=== PATIENT | female | born 1945 | race Caucasian/White ===

== ENCOUNTER 2018-02-11 10:51 | Outpatient (CLI) | payer MEDICARE | END 2018-02-11 10:52 | disposition home or self-care (01) | LOC: BICMAMMO 10:51 | PROVIDERS: ATTEND Family Medicine | DX: Z12.31 Encounter for screening mammogram for malignant neoplasm of breast (principal) | CPT/HCPCS: 77063; 77067 ==

== ENCOUNTER 2018-12-31 11:20 | Inpatient (IN) | payer MEDICARE ==
[2018-12-31 12:38] LABS: #Eosinphils 0.3 thou/uL (0.0-0.7); #Lymphocytes 3.2 thou/uL (1.20-3.40); #Monocytes 1.3 thou/uL (0.11-0.59); %Basophils 0.4 % (0.0-1.0); %Eosinophils 3.6 % (0.0-10.0); %Monocytes 14.4 % (0.0-10.0); %Neutrophils 45.6 % (42.0-75.0); Hemoglobin 12.8 g/dL (12.0-16.0); Mean Corpuscular HGB CONC 34.6 g/dL (32.0-36.0); Mean Corpuscular Hemoglobin 31.5 pg (27.0-31.0); Mean Corpuscular Volume 91.1 fL (78.0-98.0); Mean Platelet Volume 8.4 fL (7.4-10.4); Platelet Count 168 thou/uL (130-400); RBC Distribution Width 13.3 % (11.5-14.5); Red Blood Cell (RBC) Count 4.06 mill/uL (4.20-5.40); White Blood Cell (WBC) Count 8.8 thou/uL (4.8-10.8)
[2018-12-31 12:42] LABS: Bilirubin Negative (Negative); Blood, Urine Negative (Negative); Clarity Clear (Clear); Glucose, Urine (Dipstick) Normal (Negative); Leukocyte Negative Leu/uL (Negative); Nitrite Negative (Negative); Protein, Urine (Dipstick) Negative (Neg-Trace); Urobilinogen 3 mg/dL (Less than 2)
[2018-12-31 12:44] LABS: INR-International Normal Ratio 1.2; PTT 29.6 SEC (22.9-36.1); Prothrombin Time 15.1 SEC (12.0-14.7)
[2018-12-31] MEDS ORDERED: Ondansetron PF 4 MG/2 ML Vial ONE (13:02)
[2018-12-31 13:26] LABS: ALT (SGPT) 37 U/L (8-55); AST (SGOT) 58 U/L (5-34); Albumin 3.6 g/dL (3.4-4.8); Alkaline Phosphatase 151 U/L (40-110); Anion Gap 10 mmol/L (10-20); BUN (Urea Nitrogen) 15 mg/dL (9.8-20.1); Bilirubin, Total 0.9 mg/dL (0.2-1.2); Calc. Creatinine Clearance 0 mL/min (70-130); Calcium 8.3 mg/dL (7.8-10.44); Carbon Dioxide 23 mmol/L (23-31); Chloride 95 mmol/L (98-107); Estimated GFR-MDRD 69; Globulin 3.8 g/dL (2.4-3.5); Glucose 96 mg/dL (83-110); Potassium 4.3 mmol/L (3.5-5.1); Protein, Total 7.4 g/dL (6.0-8.3); Sodium 124 mmol/L (136-145)
[2018-12-31] MEDS ORDERED: Pantoprazole 40 MG VIAL ONE (13:33)
[2018-12-31] MEDS ORDERED: Acetaminophen 325 MG TAB PO PRN (14:46)
--- NOTE | 2018-12-31 15:20 | HP ---
CHIEF COMPLAINT: Hematemesis. HISTORY OF PRESENT ILLNESS: The patient is 73-year-old female with a past medical history of hypertension, who presents to the hospital with complaints of hematemesis x1 and melena. The patient states that she woke up this morning, felt kind of unwell, felt very nauseated. She went up to go to the bathroom, felt very nauseous and then she threw up about half a cup of bloody emesis. The patient's was at the bedside stated that it also had some clots in it. She denied any dizziness or lightheadedness. However, she did not feel well. Then, she started having some abdominal cramping. At this time, she went to the bathroom and had some really, really dark tarry stools. The patient states that she does take ibuprofen, but very occasionally, not on a regular basis. She states that she had an endoscopy about 2 or 3 years ago and was told that she has a tear and at that time, there was no intervention. However, she was advised that the situation like this arises to come into the hospital. However, this was a very long time ago. The patient is currently on nadolol for this reason. PAST MEDICAL HISTORY: She has history of hypertension. PAST SURGICAL HISTORY: She has had a and she had a uterus that was ruptured, which was removed. MEDICATIONS: She is on; 1. Amlodipine 10 mg daily. 2. Nadolol 20 mg daily. 3. Prilosec 20 mg as needed. 4. Cranberry. 5. Multivitamin. ALLERGIES: SHE IS ALLERGIC TO SULFA. HER THROAT SWELLS UP. REVIEW OF SYSTEMS: All negative except for the ones mentioned above in the HPI. FAMILY HISTORY: History of heart disease and strokes in mother and father. SOCIAL HISTORY: The patient smokes a pack every 2 to 3 days. She does consume about 12 cans of alcohol in a week and does not drink any hot liquor. PHYSICAL EXAMINATION: VITAL SIGNS: As of the following; temperature of 98.2, respiratory rate 20, pulse 63, blood pressure 140/87, and oxygen saturation 100% on room air. GENERAL: She is awake, alert, and oriented x3. Does not appear in any distress. HEENT: Normocephalic, atraumatic. Pupils are equal and reactive to light. NECK: No lymphadenopathy noted. CARDIOVASCULAR: S1 and S2 present. No murmurs, rubs, or gallops. LUNGS: Clear to auscultation. No rhonchi or wheezes noted. ABDOMEN: Soft. Bowel sounds are present x2. She does have pain upon palpation to epigastric and her right upper quadrant. EXTREMITIES: Mild 1+ edema. NEUROVASCULAR: No focal deficits noted. SKIN: No cuts, lesions, or bruises noted. LABORATORY RESULTS: WBCs of 8.8, hemoglobin of 12.8, hematocrit of 37.0, and platelets of 168. Chemistry; sodium of 124, potassium of 4.3, BUN of 15, and creatinine 0.81. Her AST is 58, ALT is 37. Her urine was normal. ASSESSMENT AND PLAN: The patient is a very pleasant 73-year-old female, who presents to the hospital with complaints of hematemesis. 1. Hematemesis. This could be possibly from either some peptic ulcer disease versus esophageal tear versus varices. However, we will get a CT of abdomen and pelvis and keep her n.p.o. with just sips of water. I will check her H and H every 6 hours. She has had only one episode at home and she has had no episodes here. Also, I will start her on some gentle normal saline. Hold her blood pressure medications and as I mentioned, get GI on board and I will also put her on a PPI. 2. Hyponatremia. I will check a serum osmolality, urine osmolality, and urine sodium. This could be secondary to syndrome of inappropriate antidiuretic hormone secretion from stressful situation versus mild dehydration. However, I will await till results of the lab tests come back. 3. History of hypertension. I will hold off her amlodipine, however, may consider starting her on nadolol. 4. Deep venous thrombosis prophylaxis. I will not put her on any Lovenox given her fact that she is having hematemesis and melena. Job ID: [id number]
--- NOTE | 2018-12-31 15:33 | CT ---
CT Abdomen Pelvis WO Con History: Abdominal pain Comparison: Abdomen MRI 2012. Findings: Lung bases are clear. No pericardial effusion. Severe cirrhosis. Evaluation for liver mass as well as the solid organs is limited without intravenous contrast. There is no nephroureterolithiasis or hydroureteronephrosis. Small volume free fluid in the pelvis which does contain some dystrophic calcifications in the depend ent pelvis. There is circumferential wall thickening of the ascending colon likely congestive in nature. The appe ndix is felt to be visualized and is normal. Mild enlargement of the portal vein. Mild edema around the portal confluence. Mild retroperitoneal venous congestive changes. Circumferential disc osteophyte complexes lower lumbar spine causing neural foraminal and spinal karoline l narrowing. Impression: 1. No nephroureterolithiasis or hydroureteronephrosis. No secondary evidence of a recently passed sto ne. 2. Severe hepatic cirrhosis with congestive changes of the ascending colon and retroperitoneal venous system from chronic portal hypertension. 3. MRI with and without contrast liver protocol is recommended to evaluate for underlying hepatic mas s given lack of cross-sectional imaging since October 2012. 4. Small volume ascites in the pelvic cul-de-sac.
[2018-12-31 15:43] LABS: Hemoglobin 12.6 g/dL (12.0-16.0)
[2018-12-31 17:13] VITALS: BMI 28.9
[2018-12-31] MEDS: Sodium Chloride 0.9% 1,000 ML IV SCH (17:51)
[2018-12-31 18:18] LABS: Anion Gap 12 mmol/L (10-20); BUN (Urea Nitrogen) 13 mg/dL (9.8-20.1); Calc. Creatinine Clearance 75 mL/min (70-130); Calcium 8.4 mg/dL (7.8-10.44); Carbon Dioxide 21 mmol/L (23-31); Chloride 106 mmol/L (98-107); Estimated GFR-MDRD 77; Glucose 92 mg/dL (83-110); Potassium 4.3 mmol/L (3.5-5.1); Sodium 135 mmol/L (136-145)
[2018-12-31 21:05] LABS: Hemoglobin 12.6 g/dL (12.0-16.0)
[2019-01-01] MEDS: Pantoprazole 80 MG in Sodium Chloride 0.9% 100 ML IVP SCH ×2 (01:04→10:37)
[2019-01-01] MEDS: Zolpidem Tartrate 5 MG TAB PO PRN ×2 (02:19→22:07)
[2019-01-01 03:25] LABS: #Basophils 0.1 thou/uL (0.0-0.2); #Eosinphils 0.3 thou/uL (0.0-0.7); #Lymphocytes 3.1 thou/uL (1.20-3.40); #Monocytes 1.2 thou/uL (0.11-0.59); #Neutrophils 3.9 thou/uL (1.40-6.50); %Basophils 0.7 % (0.0-1.0); %Eosinophils 3.4 % (0.0-10.0); %Lymphocytes 36.6 % (21.0-51.0); %Monocytes 13.6 % (0.0-10.0); %Neutrophils 45.7 % (42.0-75.0); Hemoglobin 11.9 g/dL (12.0-16.0); Mean Corpuscular HGB CONC 33.6 g/dL (32.0-36.0); Mean Corpuscular Hemoglobin 31.2 pg (27.0-31.0); Mean Corpuscular Volume 92.6 fL (78.0-98.0); Mean Platelet Volume 8.5 fL (7.4-10.4); Platelet Count 150 thou/uL (130-400); RBC Distribution Width 13.6 % (11.5-14.5); White Blood Cell (WBC) Count 8.6 thou/uL (4.8-10.8)
[2019-01-01 03:46] LABS: Anion Gap 10 mmol/L (10-20); BUN (Urea Nitrogen) 13 mg/dL (9.8-20.1); Calc. Creatinine Clearance 69 mL/min (70-130); Calcium 8.1 mg/dL (7.8-10.44); Carbon Dioxide 23 mmol/L (23-31); Chloride 107 mmol/L (98-107); Estimated GFR-MDRD 69; Glucose 89 mg/dL (83-110); Potassium 3.8 mmol/L (3.5-5.1); Sodium 136 mmol/L (136-145)
[2019-01-01 08:39] LABS: Hemoglobin 12.7 g/dL (12.0-16.0)
[2019-01-01] MEDS: Nadolol 40 MG TAB PO SCH ×2 (08:54→09:20)
--- NOTE | 2019-01-01 09:33 | CON ---
DATE OF CONSULTATION: 01/01/2019 REASON FOR CONSULTATION: Hematemesis. HISTORY OF PRESENT ILLNESS: Yvrose Mcdonough is a 73-year-old woman, previously seen by my GI colleague, Dr. Mayo. In 2012, she underwent EGD and colonoscopy. The colonoscopy was normal showing only internal hemorrhoids, but the EGD demonstrated grade 2 esophageal varices and antral ulcer, antral gastritis, and portal hypertensive gastropathy. At that point, the patient was started on Nexium and nadolol. She was diagnosed with hepatitis C, genotype 4, and was found to have cirrhotic liver configuration on imaging. She is continued on nadolol since that time, but has not followed up with Dr. Mayo at all. She continues to smoke. She also continues to drink alcohol, at least 12 alcoholic beverages per week, probably more. She has not had any symptoms of ascites or jaundice or any GI bleeding over the past 6 years since last seeing Dr. Mayo. She has no chronic gastrointestinal symptoms. Yesterday morning, she had sudden emesis and this was a moderate amount of what appeared to be chen blood. This was a single event. Later yesterday, she had a melenic-appearing stool. This has not recurred. She has had no bowel movements. No nausea. No abdominal pain or further vomiting. This morning, she has remained hemodynamically stable. BUN is only 13. Hemoglobin on admission was 12.8 and this is stable at 11.[address] imaging without contrast demonstrates cirrhotic liver configuration with evidence of portal hypertension, small amount of free fluid in the pelvis. The patient relates that she will take IV ibuprofen perhaps twice per week for aches and pains. She takes Prilosec on an as-needed basis for heartburn and she has continued her nadolol. She has never been treated for hepatitis C. PAST MEDICAL HISTORY: Hypertension, , hysterectomy, cirrhosis diagnosed in 2012, hepatitis C genotype 4, colonoscopy in 2012 normal, EGD in 2013 showing grade 2 esophageal varices and antral ulcer. ALLERGIES: SULFA. MEDICATIONS: Outpatient medications: 1. Ibuprofen p.r.n. 2. Prilosec 20 mg p.r.n. 3. Nadolol 20 mg daily. 4. Amlodipine. 5. Cranberry. 6. Multivitamin. Inpatient medications: 1. Nadolol. 2. Protonix drip. 3. Zolpidem. FAMILY HISTORY: Noncontributory. SOCIAL HISTORY: The patient continues to smoke. She continues to drink alcohol at least 12 alcoholic beverages per day, probably more. PHYSICAL EXAMINATION: VITAL SIGNS: Temperature 98.7, pulse 62, blood pressure 168/69, oxygen saturation 92% on room air. GENERAL: A 73-year-old woman, lying in bed comfortably, in no distress. SKIN: No jaundice. No rashes were palpable. EYES: No scleral icterus. Extraocular eye movements intact. ENT: Mucous membranes moist. No oral lesions. LYMPH: No submandibular or supraclavicular lymphadenopathy. THYROID: Nontender to palpation. HEART: Regular rate and rhythm. LUNGS: Clear to auscultation bilaterally. ABDOMEN: Bowel sounds present. Nondistended, soft, nontender to palpation throughout. EXTREMITIES: No peripheral edema. VESSELS: Radial pulses 2+ bilaterally. NEURO: Cranial nerves II through XII intact bilaterally. No focal deficits. LABORATORY STUDIES: Hemoglobin 11.9, WBC 8.6, and platelets 150. INR 1.2, BUN 13, creatinine 0.81, sodium 136, potassium 3.8, total bilirubin 0.9, alkaline phosphatase 151, AST 58, ALT 37, and albumin 3.6. Urinalysis negative. IMAGING STUDIES: CT of the abdomen and pelvis without contrast demonstrates cirrhotic liver configuration with evidence of portal hypertension. Small amount of free fluid in the pelvis. ASSESSMENT AND PLAN: 1. Upper gastrointestinal bleed, appears to have resolved clinically. 2. Cirrhosis, with failure to follow up over the past several years. 3. History of esophageal varices, on nadolol. 4. History of peptic ulcer disease, taking ibuprofen p.r.n. The patient at presentation does not really seem consistent with acute variceal bleed, obviously this needs to be ruled out. She is on Protonix drip at this time. She has continued her nadolol since 2013. We will perform diagnostic upper endoscopy today. Further recommendations following endoscopy. 5. Hepatitis C, genotype 4. She is treatment naive. She should follow up with Dr. Mayo on an outpatient basis to consider one of the new oral therapy regimens. Job ID: [id number]
--- NOTE | 2019-01-01 10:55 | PDOC.HOSPP ---
- Subjective Encounter Date: 01/01/19 Encounter Time: 08:45 Subjective: Patient seen and examined. No new complaints. No overnight events - Objective Vital Signs & Weight: Vital Signs (12 hours) Temp Pulse Resp BP Pulse Ox 01/01/19 08:00 98.4 F 65 16 126/65 94 L 01/01/19 04:00 98.3 F 59 L 16 120/68 93 L 01/01/19 00:00 98.2 F 61 15 134/64 93 L Weight Weight 158 lb I&O: 12/31/18 01/01/19 01/02/19 06:59 06:59 06:59 Intake Total 1900 Balance 1900 Result Diagrams: 01/01/19 08:22 01/01/19 03:17 Radiology Reviewed by me: Yes Hospitalist ROS - Review of Systems Constitutional: denies: fever, chills, sweats, weakness, malaise, other Eyes: denies: pain, vision change, conjunctivae inflammation, eyelid inflammation, redness, other ENT: denies: ear pain, ear discharge, nose pain, nose discharge, nose congestion , mouth pain, mouth swelling, throat pain, throat swelling, other Respiratory: denies: cough, dry, shortness of breath, hemoptysis, SOB with excertion, pleuritic pain, sputum, wheezing, other Cardiovascular: denies: chest pain, palpitations, orthopnea, paroxysmal noc. dyspnea, edema, light headedness, other Gastrointestinal: denies: nausea, vomiting, abdominal pain, diarrhea, constipation, melena, hematochezia, other Genitourinary: denies: dysuria, frequency, incontinence, hematuria, retention, other Musculoskeletal: denies: neck pain, shoulder pain, arm pain, back pain, hand pain, leg pain, foot pain, other Skin: denies: rash, lesions, rita, bruising, other - Medication Medications: Active Medications Generic Name Dose Route Start Last Admin Trade Name Freq PRN Reason Stop Dose Admin Pantoprazole Sodium 80 mg/ 100 mls @ 10 mls/hr 12/31/18 13:15 01/01/19 10:37 Sodium Chloride IVP 100 mls INF WHIT Administration Sodium Chloride 1,000 mls @ 50 mls/hr 12/31/18 15:00 12/31/18 17:51 Normal Saline 0.9% IV 1,000 mls .Q20H WHIT Administration Nadolol 20 mg 01/01/19 09:00 01/01/19 09:20 Corgard PO 20 mg DAILY WHIT Administration Zolpidem Tartrate 10 mg 01/01/19 02:02 01/01/19 02:19 Ambien PO 10 mg HS PRN Administration Insomnia - Exam General Appearance: NAD, awake alert Eye: PERRL, anicteric sclera ENT: normocephalic atraumatic, no oropharyngeal lesions Neck: supple, symmetric, no JVD, no thyromegaly Heart: RRR, no murmur, no gallops, no rubs, normal peripheral pulses Respiratory: CTAB, no wheezes, no rales, no ronchi, normal chest expansion Gastrointestinal: soft, non-tender, non-distended, normal bowel sounds, no palpable masses Extremities: no cyanosis, no clubbing, no edema Skin: normal turgor, no lesions, no rashes Neurological: cranial nerve grossly intact, no focal deficits Musculoskeletal: normal tone, normal strength Psychiatric: normal affect, normal behavior, A&O x 3 Hosp A/P (1) Upper GI bleed Code(s): K92.2 - GASTROINTESTINAL HEMORRHAGE, UNSPECIFIED Status: Acute (2) Cirrhosis of liver Code(s): K74.60 - UNSPECIFIED CIRRHOSIS OF LIVER Status: Chronic Qualifiers: Hepatic cirrhosis type: other cirrhosis Qualified Code(s): K74.69 - Other cirrhosis of liver (3) H/O esophageal varices Code(s): Z87.19 - PERSONAL HISTORY OF OTHER DISEASES OF THE DIGESTIVE SYSTEM Status: Chronic (4) Chronic hepatitis C Code(s): B18.2 - CHRONIC VIRAL HEPATITIS C Status: Chronic Qualifiers: Hepatic coma status: without hepatic coma Qualified Code(s): B18.2 - Chronic viral hepatitis C (5) Hypertension Code(s): I10 - ESSENTIAL (PRIMARY) HYPERTENSION Status: Acute Qualifiers: Hypertension type: essential hypertension Qualified Code(s): I10 - Essential (primary) hypertension (6) PUD (peptic ulcer disease) Code(s): K27.9 - PEPTIC ULC, SITE UNSP, UNSP AC OR CHR, W/O HEMOR OR PERF Status: Chronic - Plan old records reviewed/req, plan discussed w/ family 01/01/19, today EGD, repeat labs tomorrow, check AFP tomorrow, home medication reviewed and symptomatic treatment, will consider discharge tomorrow if stable
[2019-01-01] MEDS ORDERED: PROPOFOL 200 MG/20 ML VIAL ONE (12:29)
[2019-01-01] MEDS: Sodium Chloride 0.9% 1,000 ML IV SCH (12:32)
--- NOTE | 2019-01-01 13:23 | OP ---
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 PROCEDURES PERFORMED: Esophagogastroduodenoscopy with variceal band ligation. INDICATION: A 73-year-old woman with a history of known cirrhosis and portal hypertension, presenting after a single episode of hematemesis and melena yesterday. MEDICATIONS: See Anesthesia record. FINDINGS: After discussion of the risks, benefits, and alternatives of the procedure, informed consent was obtained and witnessed. Pre-endoscopic cardiopulmonary examination was satisfactory. Time-out was performed before sedation was achieved. Sedation was achieved with Anesthesia assistance in the endoscopy unit. A Pentax adult upper endoscope was placed into the oropharynx and passed through the cricopharyngeus under direct visualization. The proximal esophageal mucosa appeared normal. In the mid and distal esophagus, there were three trunks of very large grade 3 esophageal varices. I did not see any punctate red spots or nipple signs or any other stigmata of recent hemorrhage. The endoscope was advanced beyond the GE junction, which was located at 39 cm from the incisors, and into the stomach. Forward and retroflexed views of the entire gastric mucosa were obtained. There was just some mild gastropathy in the gastric body. No erosions, no ulcerations, no bleeding lesions. The endoscope was advanced through the pylorus and into the first and second portions of the duodenum, which appeared normal. Even though, there were no stigmata of recent hemorrhage on the esophageal varices, given that no other recent bleeding source was found, I did decide to proceed with banding of the varices. Three bands were placed to large varices in the distal esophagus, without complication. Following this, the varices had really good decompression proximally. The upper endoscope was completely withdrawn and the patient allowed to recover. The patient tolerated the procedure well. There were no immediate postprocedure complications. IMPRESSION: 1. Three trunks of grade 3 distal esophageal varices, now status post variceal band ligation x3. 2. Mild portal hypertensive gastropathy in the gastric body, with no evidence of bleeding. 3. Otherwise, normal esophagogastroduodenoscopy. No evidence of gastric varices. RECOMMENDATION: 1. Full liquid diet today. 2. I am going to start octreotide 50 mcg/hour IV. This should be continued for 48 hours. If the patient is doing well tomorrow, can advance diet as tolerated. 3. The patient is going to need close followup with Dr. Mayo in the GI[facility], for repeat EGD with banding in the next 1 to 2 months. 4. Continue with nadolol. Job ID: [id number]
[2019-01-01] MEDS: Octreotide Acetate 1,250 MCG in Sodium Chloride 0.9% 250 ML 250 ML IVPB SCH (13:43)
[2019-01-01 14:16] LABS: Hemoglobin 12.6 g/dL (12.0-16.0)
[2019-01-01 21:10] LABS: Hemoglobin 12.6 g/dL (12.0-16.0)
[2019-01-02 06:43] LABS: #Basophils 0.1 thou/uL (0.0-0.2); #Eosinphils 0.4 thou/uL (0.0-0.7); #Lymphocytes 2.8 thou/uL (1.20-3.40); #Monocytes 1.2 thou/uL (0.11-0.59); #Neutrophils 4.7 thou/uL (1.40-6.50); %Basophils 0.6 % (0.0-1.0); %Eosinophils 4.5 % (0.0-10.0); %Lymphocytes 31.1 % (21.0-51.0); %Monocytes 12.5 % (0.0-10.0); %Neutrophils 51.3 % (42.0-75.0); Mean Corpuscular HGB CONC 32.8 g/dL (32.0-36.0); Mean Corpuscular Hemoglobin 30.8 pg (27.0-31.0); Mean Corpuscular Volume 93.8 fL (78.0-98.0); Platelet Count 157 thou/uL (130-400); RBC Distribution Width 13.8 % (11.5-14.5); Red Blood Cell (RBC) Count 4.23 mill/uL (4.20-5.40); White Blood Cell (WBC) Count 9.1 thou/uL (4.8-10.8)
[2019-01-02 07:07] LABS: ALT (SGPT) 33 U/L (8-55); AST (SGOT) 53 U/L (5-34); Albumin 3.7 g/dL (3.4-4.8); Alkaline Phosphatase 107 U/L (40-110); Anion Gap 13 mmol/L (10-20); BUN (Urea Nitrogen) 8 mg/dL (9.8-20.1); Calc. Creatinine Clearance 65 mL/min (70-130); Calcium 8.4 mg/dL (7.8-10.44); Carbon Dioxide 22 mmol/L (23-31); Chloride 102 mmol/L (98-107); Estimated GFR-MDRD 65; Globulin 3.8 g/dL (2.4-3.5); Glucose 107 mg/dL (83-110); Potassium 3.9 mmol/L (3.5-5.1); Protein, Total 7.5 g/dL (6.0-8.3); Sodium 133 mmol/L (136-145)
[2019-01-02] MEDS: Nadolol 40 MG TAB PO SCH (09:02)
[2019-01-02] MEDS: Sodium Chloride 0.9% 1,000 ML IV SCH (09:06)
--- NOTE | 2019-01-02 10:15 | PDOC.HOSPP ---
- Subjective Encounter Date: 01/02/19 Encounter Time: 08:00 Subjective: Patient seen and examined. No new complaints. No overnight events - Objective Vital Signs & Weight: Vital Signs (12 hours) Temp Pulse Resp BP Pulse Ox 01/02/19 07:32 98.4 F 61 18 159/71 H 93 L 01/02/19 04:07 98.3 F 64 18 135/71 95 01/02/19 00:00 97.9 F 60 16 136/74 91 L Weight Weight 158 lb I&O: 01/01/19 01/02/19 01/03/19 06:59 06:59 06:59 Intake Total 1900 Balance 1900 Result Diagrams: 01/02/19 06:09 01/02/19 06:09 Hospitalist ROS - Review of Systems Constitutional: denies: fever, chills, sweats, weakness, malaise, other Eyes: denies: pain, vision change, conjunctivae inflammation, eyelid inflammation, redness, other ENT: denies: ear pain, ear discharge, nose pain, nose discharge, nose congestion , mouth pain, mouth swelling, throat pain, throat swelling, other Respiratory: denies: cough, dry, shortness of breath, hemoptysis, SOB with excertion, pleuritic pain, sputum, wheezing, other Cardiovascular: denies: chest pain, palpitations, orthopnea, paroxysmal noc. dyspnea, edema, light headedness, other Gastrointestinal: denies: nausea, vomiting, abdominal pain, diarrhea, constipation, melena, hematochezia, other Genitourinary: denies: dysuria, frequency, incontinence, hematuria, retention, other Musculoskeletal: denies: neck pain, shoulder pain, arm pain, back pain, hand pain, leg pain, foot pain, other Skin: denies: rash, lesions, rita, bruising, other - Medication Medications: Active Medications Generic Name Dose Route Start Last Admin Trade Name Freq PRN Reason Stop Dose Admin Pantoprazole Sodium 80 mg/ 100 mls @ 10 mls/hr 12/31/18 13:15 01/01/19 10:37 Sodium Chloride IVP 100 mls INF WHIT Administration Sodium Chloride 1,000 mls @ 50 mls/hr 12/31/18 15:00 01/02/19 09:06 Normal Saline 0.9% IV Not Given .Q20H WHIT Octreotide Acetate 1,250 mcg/ 251.25 mls @ 10.05 mls/hr 01/01/19 12:59 13:43 Sodium Chloride IVPB 251.25 mls INF WHIT Administration 50 MCG/HR Nadolol 20 mg 01/01/19 09:00 01/02/19 09:02 Corgard PO 20 mg DAILY WHIT Administration Zolpidem Tartrate 10 mg 01/01/19 02:02 01/01/19 22:07 Ambien PO 10 mg HS PRN Administration Insomnia - Exam General Appearance: NAD, awake alert Eye: PERRL, anicteric sclera ENT: normocephalic atraumatic, no oropharyngeal lesions Neck: supple, symmetric, no JVD, no thyromegaly, no lymphadenopathy Heart: RRR, no murmur, no gallops, no rubs, normal peripheral pulses Respiratory: CTAB, no wheezes, no rales, no ronchi, normal chest expansion Gastrointestinal: soft, non-tender, non-distended, normal bowel sounds, no palpable masses Extremities: no cyanosis, no clubbing, no edema Skin: normal turgor, no lesions, no rashes Neurological: cranial nerve grossly intact, normal sensation to touch, no weakness Musculoskeletal: normal tone, normal strength Psychiatric: normal affect, normal behavior, A&O x 3 Hosp A/P (1) Upper GI bleed Code(s): K92.2 - GASTROINTESTINAL HEMORRHAGE, UNSPECIFIED Status: Acute (2) Cirrhosis of liver Code(s): K74.60 - UNSPECIFIED CIRRHOSIS OF LIVER Status: Chronic Qualifiers: Hepatic cirrhosis type: other cirrhosis Qualified Code(s): K74.69 - Other cirrhosis of liver (3) H/O esophageal varices Code(s): Z87.19 - PERSONAL HISTORY OF OTHER DISEASES OF THE DIGESTIVE SYSTEM Status: Chronic (4) Chronic hepatitis C Code(s): B18.2 - CHRONIC VIRAL HEPATITIS C Status: Chronic Qualifiers: Hepatic coma status: without hepatic coma Qualified Code(s): B18.2 - Chronic viral hepatitis C (5) Hypertension Code(s): I10 - ESSENTIAL (PRIMARY) HYPERTENSION Status: Acute Qualifiers: Hypertension type: essential hypertension Qualified Code(s): I10 - Essential (primary) hypertension (6) PUD (peptic ulcer disease) Code(s): K27.9 - PEPTIC ULC, SITE UNSP, UNSP AC OR CHR, W/O HEMOR OR PERF Status: Chronic (7) Portal hypertension with esophageal varices Code(s): K76.6 - PORTAL HYPERTENSION; I85.00 - ESOPHAGEAL VARICES WITHOUT BLEEDING Status: Chronic - Plan old records reviewed/req, plan discussed w/ family 01/01/19, today EGD, repeat labs tomorrow, check AFP tomorrow, home medication reviewed and symptomatic treatment, will consider discharge tomorrow if stable 01/02/19- GI recommendation appreciated, advance today, continue Octreotide drip today, H & H stable, will consider discharge tomorrow, DC IVF
--- NOTE | 2019-01-02 12:29 | PRG ---
DATE OF SERVICE: 01/02/2019 SUBJECTIVE: Ms. Mcdonough is doing just fine. She has a little bit of mild chest soreness. She has been tolerating her liquid diet just fine. She has remained hemodynamically stable. No nausea or vomiting. Hemoglobin has remained stable. OBJECTIVE: VITAL SIGNS: Temperature 98.4, pulse 61, blood pressure 159/71, and 93% oxygen saturation on room air. GENERAL: No acute distress. HEART: Regular rate and rhythm. LUNGS: Clear to auscultation bilaterally. ABDOMEN: Soft and nontender to palpation throughout. EXTREMITIES: No peripheral edema. LABORATORY STUDIES: Sodium 133, potassium 3.9, BUN 8, creatinine 0.86, total bilirubin 1.0, alkaline phosphatase 107, AST 53, ALT 33, albumin 3.7. INR 1.2. WBC 9.1, hemoglobin up to 13.0, and platelets 157. ASSESSMENT AND PLAN: 1. Esophageal varices, status post endoscopic variceal band ligation performed yesterday x3. The patient needs to continue on octreotide for another 24 hours. At that point, if there is no further evidence of rebleeding, she could potentially be discharged home, to continue her nadolol. She will need to follow up with Dr. Mayo in the GI Clinic within the next few weeks on an outpatient basis. She will need repeat EGD on an outpatient basis in the next 1 to 2 months for rebanding of varices. 2. Upper gastrointestinal bleed, has resolved clinically. 3. Cirrhosis, secondary to alcohol and hepatitis C. 4. Hepatitis C, genotype 4. The patient will need to follow up with Dr. Mayo on an outpatient basis. I emphasized with her the supreme importance of stopping all alcohol use from this point forward. She will probably be a good candidate for one of the newer all oral hepatitis C therapy regimens within the coming months. 5. Advance diet today. Discharge tomorrow if doing well. Job ID: [id number]
[2019-01-02] MEDS: Octreotide Acetate 1,250 MCG in Sodium Chloride 0.9% 250 ML 250 ML IVPB SCH (15:38)
--- NOTE | 2019-01-02 17:48 | PQF ---
ISAAC FUENTES, VICK MENDEZ MD [id number] CLINICAL DOCUMENTATION IMPROVEMENT CLARIFICATION FORM: ICD-10 Updated PLEASE DO AN ADDENDUM TO THE PROGRESS NOTE WITH ANY DOCUMENTATION UPDATES OR ADDITIONS AND CARRY THROUGH TO DC SUMMARY. THANK YOU. DATE: 01/02/19 ATTN: Dr. Yoo Please exercise your independent, professional judgment in responding to the clarification form. Clinical indicators are provided on the bottom of this form for your review Please check appropriate box(s): [ x ] Upper Gastrointestinal Bleed due to Esophageal varices with hemorrhage [ ] Upper Gastrointestinal Bleed due to Esophageal varices without hemorrhage [ ] Upper gastrointestinal bleed due to Acuity:[ ] Acute [ ] Chronic [ ] Other diagnosis [ ] Unable to determine In addition, please specify: Present on Admission (POA): [x ] Yes [ ] No [ ] Unable to determine For continuity of documentation, please document condition throughout progress notes and discharge summary. Thank You. CLINICAL INDICATORS - SIGNS / SYMPTOMS / LABS / RESULTS AND LOCATION IN EMR H&P(Margret): "Hematemesis x1 and melena" 01/02 (Fredo): "Upper GI bleed" RISK FACTORS / RESULTS AND LOCATION IN EMR 01/02 Dr. 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 Hook TREATMENTS / RESULTS AND LOCATION IN EMR Octreotide drip 12/31 per orders Protonix drip 12/31 per orders NS at 50 12/31 to 01/02 per orders EGD with banding x3 01/01 per OP note GI consult 12/31 orders Serial Hgb/Hcts Q6h 12/31 per orders (This form is maintained as a part of the permanent medical record) 2014 [employer]. All Rights Reserved Serenity Restrepo RN, BSN, CCDS [email or web address] FIOR
[2019-01-02] MEDS: Zolpidem Tartrate 5 MG TAB PO PRN (22:07)
[2019-01-03] MEDS: Nadolol 40 MG TAB PO SCH (08:40)
--- NOTE | 2019-01-03 09:12 | PRG ---
DATE OF SERVICE: 01/03/2019 SUBJECTIVE: Ms. Mcdonough is doing well. She has no further chest discomfort. No abdominal pain, nausea, or vomiting. She is tolerating her diet. She has remained hemodynamically stable. OBJECTIVE: VITAL SIGNS: Temperature 98.7, pulse 76, blood pressure 149/73, and 92% oxygen saturation on room air. GENERAL: No acute distress. HEART: Regular rate and rhythm. LUNGS: Clear to auscultation bilaterally. ABDOMEN: Mild distention, soft, and nontender to palpation throughout. EXTREMITIES: No peripheral edema. LABORATORY STUDIES: AFP only 4.8. ASSESSMENT AND PLAN: 1. Esophageal varices, status post endoscopic variceal band ligation performed two days ago x3. The patient can finish up her octreotide drip today, and from my standpoint, with no further evidence of rebleeding, she could be discharged home. She needs to continue with her nadolol. She will need to follow up with Dr. Mayo in the GI Clinic in the next couple of weeks on an outpatient basis. She will need repeat esophagogastroduodenoscopy in the next 1 to 2 months for repeat banding of varices. 2. Upper gastrointestinal bleed, clinically resolved. 3. Cirrhosis, secondary to alcohol and hepatitis C. 4. Hepatitis C, genotype 4. I again emphasized the importance of stopping all alcohol use from this point forward, the patient is confident she will be able to do this. She will probably be a good candidate for hepatitis C therapy within the coming months as well. Gastroenterology will sign off, but please call back anytime with questions or concerns. Job ID: [id number]
--- NOTE | 2019-01-03 12:06 | PDOC.HOSPP ---
- Subjective Encounter Date: 01/03/19 Encounter Time: 11:00 Subjective: Expresses no complaint. - Objective Vital Signs & Weight: Vital Signs (12 hours) Temp Pulse Resp BP Pulse Ox 01/03/19 08:40 92 L 01/03/19 07:38 98.7 F 76 18 149/73 H 92 L Weight Weight 158 lb I&O: 01/02/19 01/03/19 01/04/19 06:59 06:59 06:59 Intake Total 720 Balance 720 Result Diagrams: 01/02/19 06:09 01/02/19 06:09 Hospitalist ROS - Medication Medications: Active Medications Generic Name Dose Route Start Last Admin Trade Name Freq PRN Reason Stop Dose Admin Acetaminophen 650 mg 12/31/18 14:46 01/02/19 22:09 Tylenol PO 650 mg Q4H PRN Administration Headache/Fever/Mild Pain (1-3) Octreotide Acetate 1,250 mcg/ 251.25 mls @ 10.05 mls/hr 01/01/19 12:59 15:38 Sodium Chloride IVPB 251.25 mls INF WHIT Administration 50 MCG/HR Nadolol 20 mg 01/01/19 09:00 01/03/19 08:40 Corgard PO 20 mg DAILY WHIT Administration Zolpidem Tartrate 10 mg 01/01/19 02:02 01/02/19 22:07 Ambien PO 10 mg HS PRN Administration Insomnia - Exam Neck: no JVD Heart: RRR Respiratory: CTAB Gastrointestinal: soft Extremities: no edema Neurological: no focal deficits Psychiatric: normal affect Hosp A/P (1) Hypertension Code(s): I10 - ESSENTIAL (PRIMARY) HYPERTENSION Status: Acute Qualifiers: Hypertension type: essential hypertension Qualified Code(s): I10 - Essential (primary) hypertension (2) Upper GI bleed Code(s): K92.2 - GASTROINTESTINAL HEMORRHAGE, UNSPECIFIED Status: Acute (3) Chronic hepatitis C Code(s): B18.2 - CHRONIC VIRAL HEPATITIS C Status: Chronic Qualifiers: Hepatic coma status: without hepatic coma Qualified Code(s): B18.2 - Chronic viral hepatitis C (4) Cirrhosis of liver Code(s): K74.60 - UNSPECIFIED CIRRHOSIS OF LIVER Status: Chronic Qualifiers: Hepatic cirrhosis type: other cirrhosis Qualified Code(s): K74.69 - Other cirrhosis of liver (5) H/O esophageal varices Code(s): Z87.19 - PERSONAL HISTORY OF OTHER DISEASES OF THE DIGESTIVE SYSTEM Status: Chronic - Plan Overall condition stable.. Home today.
--- NOTE | 2019-01-03 14:34 | DIS ---
DATE OF ADMISSION: 12/31/2018 DATE OF DISCHARGE: 01/03/2019 ADMITTING DIAGNOSES: Primary diagnosis: Hematemesis. Secondary diagnoses: Hyponatremia, hypertension. DISCHARGE DIAGNOSES: Primary diagnosis: Hematemesis secondary to bleeding, esophageal varices. Secondary diagnoses: Cirrhosis of the liver, hepatitis C, hyponatremia, history of hypertension. BILLET STRAIGHTENER: Dr. Hook. PROCEDURE: Esophagogastroduodenoscopy with band ligation of esophageal varices. Abdomen and pelvis CT. HOSPITAL COURSE: Course of hospitalization, uncomplicated. Responded well to management. The patient is clinically stable at this time, being discharged home. DISCHARGE MEDICATIONS: Please see discharge medication reconciliation sheet. PHYSICAL EXAMINATION: For today's physical examination, please report to the patient's medical record progress note section. FOLLOWUP: The patient is to follow up with her PCP, with Dr. Hook, and also in GI Clinic. DISCHARGE TIME: 31 minutes. Job ID: [id number]
[2019-01-03 16:44] VITALS: BP 140/57; TEMP 97.9
--- NOTE | 2019-01-05 22:31 | PQF ---
ISAAC FUENTES CYPRIEN [id number] CLINICAL DOCUMENTATION CLARIFICATION FORM: POST DISCHARGE Addendum to original discharge summary date: ____ Late entry note date: __ DATE: 01/05/19 ATTN: Kiersten Ferguson Please exercise your independent, professional judgment in responding to the clarification form. Clinical indicators are provided on the bottom of this form for your review In your clinical opinion based on clinical findings below, can you please clarify specific type of esophageal varices if : Please check appropriate box(s): [ ] Primary Esophageal Varices [ ] Secondary Esophageal Varices due to Cirrhosis [ ] Secondary Esophageal Varices due to Portal Hypertension [ ] Other condition, please specify: [ ] Unable to determine In addition, please specify: Present on Admission (POA): [ ] Yes [ ] No [ ] Unable to determine For continuity of documentation, please document condition throughout progress notes and discharge summary. Thank You. CLINICAL INDICATORS - SIGNS / SYMPTOMS / LABS H&P p1 12/31 Dr Oswald presents to the hospital with complaints of hematemesisx1 and melena H&P p1 12/31 Dr Oswald the patient states that she woke up this morning, felt kind of unwell, felt very nauseated H&P p1 12/31 Dr Oswald the patient states that she does stake ibuprofen, but very occasionally, not on a regular basis Consult p3 01/01 Dr Hook upper gastrointestinal bleed, appears to have resolved clinically Operative report p1 01/01 three trunks of grade 3 distal esophageal varices, now s/p variceal band ligation x 3 RISK FACTORS H&P p1 12/31 - 73 year-old female Consult p3 01/01 Cirrhosis with failure Consult p3 01/01 History of Peptic Ulcer disease Consult p3 01/01 - Hepatitic C genotype 4 Operative report p1 01/01 Portal Hypertension TREATMENTS: MAY 05 Protonix Drip GI consult 01/01- David Cruz Operative report p1 01/01 EGD with variceal band ligation (This form is maintained as a part of the permanent medical record) 2014 [employer]. All Rights Reserved [email or web address] [not provided] MTDD
== END 2019-01-03 16:42 | disposition home or self-care (01) | DRG 369 ==
LOC: ERS 11:20 → T4-A 14:20
PROVIDERS: ADMIT Internal Medicine; ATTEND Internal Medicine
PROC: 06L38CZ Occlusion of Esophageal Vein with Extraluminal Device, Via Natural or Artificial Opening Endoscopic (ICD-10-PCS; principal; 2019-01-01)
DX: I85.01 Esophageal varices with bleeding (principal); E87.1 Hypo-osmolality and hyponatremia; K76.6 Portal hypertension; I10 Essential (primary) hypertension; B18.2 Chronic viral hepatitis C; K31.89 Other diseases of stomach and duodenum; K70.30 Alcoholic cirrhosis of liver without ascites; Z88.2 Allergy status to sulfonamides; Z79.899 Other long term (current) drug therapy; Z87.11 Personal history of peptic ulcer disease
CPT/HCPCS: 36415; 36416; 74176; 80048; 80053; 81003; 82105; 83930; 83935; 84300; 85025; 85610; 85730; 86850; 86900; 86901; 96361; 96365; 96366; 96375; 96376; C9113; J2354; J2405; J2704; J3490; J7050

== ENCOUNTER 2019-03-03 06:42 | Day surgery (SDC) | payer MEDICARE ==
[2019-03-02 10:20] VITALS: BMI 28.5
[2019-03-03] MEDS ORDERED: Lidocaine 1% PF 5 ML VIAL ONE (09:31)
[2019-03-03] MEDS ORDERED: PROPOFOL 200 MG/20 ML VIAL ONE (09:31)
[2019-03-03] MEDS ORDERED: Fentanyl 100 MCG/2 ML VIAL ONE (09:55)
--- NOTE | 2019-03-03 10:20 | OP ---
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 PROCEDURE PERFORMED: Esophagogastroduodenoscopy with endoscopic variceal band ligation. INDICATION: A 73-year-old woman with cirrhosis secondary to hepatitis C and prior alcohol use, who presented with esophageal varices, status post banding x3 on EGD in December 2018. She is here for repeat assessment and repeat banding of esophageal varices. MEDICATIONS: See Anesthesia record. FINDINGS: After discussion of the risks, benefits, and alternatives of the procedure, informed consent was obtained and witnessed. Pre-endoscopic cardiopulmonary examination was satisfactory. Time-out was performed before sedation was achieved. Sedation was achieved with Anesthesia assistance in the endoscopy unit. A Pentax adult upper endoscope was placed into the oropharynx and passed through the cricopharyngeus under direct visualization. The proximal and mid esophageal mucosa appeared normal. In the distal esophagus, there is evidence of some scarring from prior banding procedures, but there are still 3 trunks of medium to large sized distal esophageal varices. There were no stigmata of hemorrhage. The endoscope was briefly advanced beyond the GE junction at 39 cm, and into the stomach. Forward and retroflexed views of the entire gastric mucosa were obtained. There were no gastric varices seen. The gastric mucosa appears normal throughout. There was no evidence of any old blood or active bleeding. The endoscope was advanced through the pylorus and into the first and second portions of the duodenum, which also appeared normal. The endoscope was then withdrawn back into the esophagus for re-examination of the varices. It was decided to proceed with variceal band ligation. The endoscope was removed, and the band ligator kit was applied to the endoscope. The esophagus was then reintubated. I successfully placed 5 bands to the distal esophageal varices, from 38 to 31 cm from the incisors. The upper endoscope was then completely withdrawn, and the patient allowed to recover. The patient tolerated the procedure well. There were no immediate postprocedure complications. IMPRESSION: 1. Three trunks of medium to large size distal esophageal varices. Five bands placed from 38 to 31 cm. 2. Otherwise normal esophagogastroduodenoscopy. RECOMMENDATIONS: 1. Liquid diet today, can advance to regular diet tomorrow. 2. Continue nadolol. 3. Repeat EGD for repeat banding in 2 months. 4. Follow up in the GI/Liver Clinic in 1 month. Job ID: [id number]
== END 2019-03-03 11:45 | disposition home or self-care (01) ==
LOC: SDC 06:42
PROVIDERS: ATTEND Internal Medicine
PROC: 06L38CZ Occlusion of Esophageal Vein with Extraluminal Device, Via Natural or Artificial Opening Endoscopic (ICD-10-PCS; principal; 2019-03-03)
DX: K70.30 Alcoholic cirrhosis of liver without ascites (principal); B19.20 Unspecified viral hepatitis C without hepatic coma; I85.10 Secondary esophageal varices without bleeding; I10 Essential (primary) hypertension; Z79.899 Other long term (current) drug therapy; Z88.2 Allergy status to sulfonamides
CPT/HCPCS: J2001; J2704; J3010

== ENCOUNTER 2019-03-26 09:17 | Outpatient (CLI) | payer MEDICARE ==
--- NOTE | 2019-03-26 11:18 | MRI ---
MR the abdomen with and without IV contrast INDICATION: History of alcoholic cirrhosis and hepatitis C COMPARISON: CT of the abdomen without contrast dated December 31, 2018 and MRI of the abdomen with and without contrast dated May 01, 2012 from prior radiology associates. TECHNIQUE: Coronal T2, axial T2 fat sat, in and out of phase axial T1, axial FASE and dynamic pre and postcontrast images in the axial plane were obtained of the abdomen. A delayed phase coronal T1 fat sat series was also performed. FINDINGS: Liver: Again seen is a nodular contour to the liver consistent with a cirrhotic morphology. There is a new wedgelike region of diminished T1 and mildly hyperintense T2 involving the anterior medial margin of segment 8 of the right hepatic lobe. This lesion demonstrates no overt abnormal arterial en hancement but does demonstrate progressive enhancement on the portal venous and delayed phase imaging. This is best seen on image 17 of series 11, image 12 of series 5, image 12 of series 6. Ther e is some subtle retraction of the liver margin along the anterolateral aspect of the lesion, most evident on image 2018 of series 8. No additional suspicious observations demonstrated. There is some mild peripheral enhancement seen along the margin of the lateral left hepatic lobe likely related to portal venous shunting. There are some serpiginous vessels seen along the posterior lateral margin of segment 6 of the right hepatic lobe, just superficial to the liver capsule, likely related to venous collateralization. Small subcentimeter cysts are seen within the segment 6 and segment 4B. Gallbladder: Normal appearing. The visualized intrahepatic and extra hepatic biliary ducts appear wit hin normal limits. Pancreas: Normal appearing. Adrenal glands: Normal appearing. Spleen: Normal in size measuring 10 cm in length. Kidneys: No focal renal lesion or hydronephrosis. Retroperitoneum: Small amount of the increased T2 signal is seen within the retroperitoneum, changes near the pancreatic head which is nonspecific. No drainable fluid collection is evident. No definite pathologically enlarged lymph nodes are evident. Bone: No suspicious marrow signal abnormality is evident. Lung bases: No pleural effusion. IMPRESSION: 1. New wedgelike region of diminished T1 and mildly hyperintense T2 with delayed phase contrast enhan cement. No suspicious arterial enhancement is demonstrated to suggest primary hepatic malignancy. The region again is slightly wedge like with geographic margins. There is some retraction of the live r capsule near this region. There is no evidence to suggest presence of necrosis. Findings are most consistent with a region of confluent fibrosis. As a conservative measure, a follow-up MRI of the abd omen with and without contrast and the addition of diffusion-weighted imaging is recommended. 2. Persistent findings of cirrhosis of the liver. 3. Mild increased T2 signal seen within the retroperitoneal soft tissues adjacent to the pancreatic h ead may reflect small venous collateralizations within the retroperitoneum; however, edematous changes from a mild pancreatitis is not excluded. Recommend correlation with the clinical exam.
[2019-03-26] MEDS ORDERED: Magnevist 469MG/ML 20 ML VIAL ONE (14:53)
== END 2019-03-26 09:18 | disposition home or self-care (01) ==
LOC: BICMRI 09:17
PROVIDERS: ATTEND Internal Medicine
DX: K70.30 Alcoholic cirrhosis of liver without ascites (principal); B19.20 Unspecified viral hepatitis C without hepatic coma; I85.10 Secondary esophageal varices without bleeding; R93.3 Abnormal findings on diagnostic imaging of other parts of digestive tract
CPT/HCPCS: 74183; 82565; A9579

== ENCOUNTER 2019-05-07 06:32 | Day surgery (SDC) | payer MEDICARE ==
[2019-05-06 09:56] VITALS: BMI 28.5
[2019-05-07] MEDS ORDERED: PROPOFOL 200 MG/20 ML VIAL ONE (09:47)
--- NOTE | 2019-05-07 10:31 | OP ---
DATE OF PROCEDURE: 05/07/2019 INFORMATION AND DATA ARCHITECT ANALYST SURGEON: None. PROCEDURE PERFORMED: EGD with variceal band ligation. INDICATION: Esophageal varices. The patient had bleeding with banding performed in December 2018, last EGD with further banding performed in February 2019. MEDICATIONS: See Anesthesia record. FINDINGS: After discussion of the risks, benefits, and alternatives of the procedure, informed consent was obtained and witnessed. Preendoscopic cardiopulmonary examination was satisfactory. Time-out was performed before sedation was achieved. Sedation was achieved with Anesthesia assistance in the endoscopy unit. A Pentax adult upper endoscope was placed into the oropharynx and passed through the cricopharyngeus under direct visualization. The proximal and mid esophageal mucosa appeared normal. In the distal esophagus, there was evidence of scarring from previous banding procedures. There were 2 trunks of varices in the distal esophagus, one of these was small and flattened out completely with insufflation. The other was more medium sized. There were no stigmata of hemorrhage. The GE junction was at 39 cm from the incisors. The endoscope was passed into the stomach. Forward and retroflexed views of the entire gastric mucosa were obtained. The gastric mucosa appears normal. The endoscope was passed through the pylorus into the first and second portions of the duodenum, which also appeared normal. At this point, the endoscope was withdrawn and the band ligator kit was applied. The endoscope was then passed back down into the distal esophagus. I successfully placed a single band over the remaining medium-sized varix at 37 cm. This was performed successfully. There was good decompression of the varix proximal to this. There was nothing else to band. The upper endoscope was completely withdrawn and the patient allowed to recover. The patient tolerated the procedure well. There were no immediate postprocedure complications. IMPRESSION: 1. Two trunks of varices in the distal esophagus, one medium sized, and one small. A single band placed to the medium-sized varix at 37 cm. Nothing else to band. 2. Otherwise normal EGD. RECOMMENDATIONS: 1. Continue nadolol. 2. Repeat EGD in 6 months. 3. Continue and finish course of Epclusa. 4. Liquid diet today. Advance diet tomorrow. 5. GI clinic followup as already planned. Job ID: [id number]
== END 2019-05-07 10:20 | disposition home or self-care (01) ==
LOC: SDC 06:32
PROVIDERS: ATTEND Internal Medicine
PROC: 06L38CZ Occlusion of Esophageal Vein with Extraluminal Device, Via Natural or Artificial Opening Endoscopic (ICD-10-PCS; principal; 2019-05-07)
DX: K70.30 Alcoholic cirrhosis of liver without ascites (principal); I85.10 Secondary esophageal varices without bleeding; B19.20 Unspecified viral hepatitis C without hepatic coma; I10 Essential (primary) hypertension; K27.9 Peptic ulcer, site unspecified, unspecified as acute or chronic, without hemorrhage or perforation; F17.200 Nicotine dependence, unspecified, uncomplicated; Z79.899 Other long term (current) drug therapy; Z88.2 Allergy status to sulfonamides
CPT/HCPCS: J2704

== ENCOUNTER 2019-07-16 08:35 | Outpatient (CLI) | payer MEDICARE ==
[2019-07-16] MEDS ORDERED: Magnevist 469MG/ML 20 ML VIAL ONE (10:19)
--- NOTE | 2019-07-16 11:26 | MRI ---
MRI ABDOMEN WITH AND WITHOUT IV CONTRAST: HISTORY: Alcohol cirrhosis, hepatitis C. COMPARISON: 03/26/2019. FINDINGS: The nodular contour of the liver is again seen. The wedge-shaped region with decreased T1 and mildly hyperintense T2 signal and mild delayed contrast enhancement involving the anterior medial margin of the segment 8 of the right hepatic lobe is stable. No abnormally enhancing lesion is seen on the ar terial phase images. Tiny cyst in the left lobe of the liver, right lobe of the liver, and the left kidney are stable. The spleen remains normal in size measuring 10 cm. The adrenal glands and right kidney are normal. The pancreas also has a normal appearance with stable mild peripancreatic T2 prol ongation along the head, likely due to inflammatory change. No free fluid or lymphadenopathy is otherwise seen. The bone marrow signal is normal. The gallbladd er is normal. No abnormal biliary ductal dilatation is seen. The small bowel loops are not abnormal ly dilated. IMPRESSION: 1. LIRADS category 2: probably benign. 2. Stable exam since 03/26/2019. POS: [facility]
== END 2019-07-16 08:36 | disposition home or self-care (01) ==
LOC: MRI 08:35
PROVIDERS: ATTEND Physician Assistant Medical
DX: K70.30 Alcoholic cirrhosis of liver without ascites (principal); B19.20 Unspecified viral hepatitis C without hepatic coma; R93.89 Abnormal findings on diagnostic imaging of other specified body structures
CPT/HCPCS: 36415; 74183; 80053; 82105; 82565; 85025; 85610; 87522; A9579

== ENCOUNTER 2019-11-05 08:09 | Outpatient (CLI) | payer MEDICARE, OTHER ==
[2019-11-06 12:32] LABS: SARS-CoV-2 MS2 Positive; SARS-CoV-2 N Gene Negative; SARS-CoV-2 S Gene Negative; SARS-CoV-2 by NAA Not Detected (NotDetected); SARS-CoV-2 orf1ab Negative
== END 2019-11-05 08:10 | disposition home or self-care (01) ==
LOC: LABBT 08:09
PROVIDERS: ATTEND Internal Medicine
DX: Z20.828 Contact with and (suspected) exposure to other viral communicable diseases (principal)
CPT/HCPCS: 87635; U0003

== ENCOUNTER 2019-11-05 10:54 | Outpatient (CLI) | payer MEDICARE ==
--- NOTE | 2019-11-05 11:52 | ULT ---
US Hepatic Doppler HISTORY: Alcoholic cirrhosis FINDINGS: The liver has a coarse echogenicity and nodular appearance consistent with cirrhosis. No mass is seen in the liver. The gallbladder wall is thickened measuring 4 mm without shadowing gallstones or pericholecystic fluid. The common bile duct measures 5 mm in diameter. The spleen is normal measuring 11 cm in length. The pancreas is normal. No free fluid is seen. There is normal flow and spectral waveforms in the hepatic, portal and splenic vasculature. IMPRESSION: 1. Cirrhosis of the liver without evidence of hepatic mass. 2. Gallbladder wall thickening without cholelithiasis.
== END 2019-11-05 10:55 | disposition home or self-care (01) ==
LOC: SCSULT 10:54
PROVIDERS: ATTEND Physician Assistant Medical
DX: K70.30 Alcoholic cirrhosis of liver without ascites (principal); B19.20 Unspecified viral hepatitis C without hepatic coma; I85.00 Esophageal varices without bleeding; K82.8 Other specified diseases of gallbladder
CPT/HCPCS: 76705

== ENCOUNTER 2019-11-10 05:49 | Day surgery (SDC) | payer MEDICARE ==
[2019-11-05 14:08] VITALS: BMI 28.7
[2019-11-10] MEDS ORDERED: PROPOFOL 200 MG/20 ML VIAL ONE (08:57)
[2019-11-10] MEDS ORDERED: Lidocaine 1% PF 5 ML VIAL ONE (08:57)
--- NOTE | 2019-11-10 10:22 | OP ---
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 PROCEDURE PERFORMED: Esophagogastroduodenoscopy, for variceal surveillance. INDICATIONS: A 74-year-old woman with a history of esophageal varices, status post hemorrhage in 12/2018 with variceal banding at that time. She has had repeat EGD for variceal band ligation in 02/2019 and most recently in 04/2019. MEDICATIONS: See Anesthesia record. FINDINGS: After discussion of the risks, benefits, and alternatives of the procedure, informed consent was obtained and witnessed. Pre-endoscopic cardiopulmonary examination was satisfactory. Time-out was performed before sedation was achieved. Sedation was achieved with Anesthesia assistance in the endoscopy unit. A Pentax adult upper endoscope was placed into the oropharynx and passed through the cricopharyngeus under direct visualization. The proximal and mid esophageal mucosa appeared normal. In the distal esophagus, there were 2 trunks of small esophageal varices. These were both grade 1, flattened out completely with air insufflation. There was no high-risk stigmata. There was nothing to band on this examination. The endoscope was advanced into the stomach. Forward and retroflexed views of the entire gastric mucosa were obtained. The gastric mucosa had some mild erythema and friability in the antrum, consistent with mild portal hypertensive gastropathy. The gastric mucosa was otherwise normal. The endoscope was advanced through the pylorus and into the first and second portions of the duodenum, which appeared normal. The upper endoscope was completely withdrawn and the patient allowed to recover. The patient tolerated the procedure well. There were no immediate postprocedure complications. IMPRESSION: 1. Two trunks of small grade 1 esophageal varices, nothing to band on this examination. 2. Otherwise normal esophagus. 3. Mild portal hypertensive gastropathy. 4. Otherwise normal esophagogastroduodenoscopy. RECOMMENDATIONS: 1. Continue nadolol. 2. Repeat EGD for variceal surveillance in 1 year. 3. Clinic followup in 6 months, or sooner if needed. Job ID: [id number]
== END 2019-11-10 10:45 | disposition home or self-care (01) ==
LOC: SDC 05:49
PROVIDERS: ATTEND Internal Medicine
PROC: 0DJ08ZZ Inspection of Upper Intestinal Tract, Via Natural or Artificial Opening Endoscopic (ICD-10-PCS; principal; 2019-11-10)
DX: Z09 Encounter for follow-up examination after completed treatment for conditions other than malignant neoplasm (principal); K70.30 Alcoholic cirrhosis of liver without ascites; I85.10 Secondary esophageal varices without bleeding; K76.6 Portal hypertension; K31.89 Other diseases of stomach and duodenum; B18.2 Chronic viral hepatitis C; I10 Essential (primary) hypertension; F17.200 Nicotine dependence, unspecified, uncomplicated; Z79.899 Other long term (current) drug therapy; Z88.2 Allergy status to sulfonamides
CPT/HCPCS: J2704

== ENCOUNTER 2020-06-14 09:42 | Outpatient (CLI) | payer MEDICARE | END 2020-06-14 09:43 | disposition home or self-care (01) | LOC: BICULT 09:42 | PROVIDERS: ATTEND Internal Medicine | DX: K70.30 Alcoholic cirrhosis of liver without ascites (principal); I85.10 Secondary esophageal varices without bleeding; B19.20 Unspecified viral hepatitis C without hepatic coma | CPT/HCPCS: 93975 ==

== ENCOUNTER 2022-06-18 12:43 | Outpatient (CLI) | payer MEDICARE | END 2022-06-18 12:44 | disposition home or self-care (01) | LOC: BICRAD 12:43 | PROVIDERS: ATTEND Family Medicine | DX: J40 Bronchitis, not specified as acute or chronic (principal) | CPT/HCPCS: 71046 ==